=== PATIENT | female | born 1960 | race Caucasian/White ===

== ENCOUNTER 2017-07-09 22:35 | Emergency (ER) | payer BC ==
[2017-07-10] MEDS ORDERED: Labetalol IV* 5 MG/ML 20 ML VIAL IV PUSH ONE (00:22)
[2017-07-10 00:45] LABS: Hematocrit 41 % (35-47); Hemoglobin 13.7 g/dl (12.0-16.0); Mean Corpuscular HGB Conc 34 g/dl (31-36); Mean Corpuscular Hemoglobin 31 pg (27-31); Mean Corpuscular Volume 91 fL (80-97); Mean Platelet Volume 9 um3 (7.4-10.4); Red Blood Count 4.46 10^6/ul (4.0-5.4); Red Cell Distribution Width 14 % (10.5-15)
[2017-07-10 00:59] LABS: Albumin 4.5 g/dL (3.2-5.2); BUN/Creatinine Ratio 17.1 (8-20); Calcium 9.3 mg/dL (8.6-10.3); EGFR African American 110.5 (>60); EGFR Non-African American 85.9 (>60); Globulin 3.4 g/dL (2-4); Potassium 3.8 mmol/L (3.5-5.0); Total Bilirubin 0.4 mg/dL (0.2-1.0); Total Protein 7.9 g/dL (6.4-8.9)
[2017-07-10 01:40] VITALS: BP 147/71
--- NOTE | 2017-07-19 02:10 | ED ---
Isabella Avila Thomas, scribed for Eva Saini MD on 07/10/17 at 0052 . Upper Extremity Pain - HPI Summary HPI Summary: The pt is a 57 y/o F c/o intermittent tingling in her left hand after two blood vessels burst on my left hand earlier today, one on my palm and one on my pinky. The tingling is located from her fingers to group home up her left forearm. Pt denies neck pain, facial droop, slurred speech, dizziness, or CP. In the room, the patients blood pressure is 175/85. She is on ASA 81 mg and atenolol 6.25 mg PO daily. PMHx includes DM Type II and HTN. - History of Current Complaint Chief Complaint: EDExtremityUpper Stated Complaint: TINGLING IN FINGERS Time Seen by Provider: 07/10/17 00:10 Hx Obtained From: Patient Onset/Duration: Started Hours Ago - earlier today, Still Present Timing: Constant Pain Location: Hand - left Aggravating Factor(s): Other - Palpation Alleviating Factor(s): Nothing Associated Signs & Symptoms: Positive: Other - tingling in left hand, pain in left hand; NEGATIVE: neck pain, facial droop, slurred speech, dizziness, CP - Allergies/Home Medications Allergies/Adverse Reactions: Allergies Allergy/AdvReac Type Severity Reaction Status Date / Time Meperidine [From Demerol HCl] Allergy Severe PHLEBITIS Verified 07/09/17 22:41 @ IV SITE Cyclobenzaprine Allergy Intermediate UNABLE TO Verified 07/09/17 22:41 [From Flexeril] BE WAKENED AFTER TAKING Morphine Allergy Intermediate Hives Verified 07/09/17 22:41 Sulfa Drugs Allergy Intermediate Hives Verified 07/09/17 22:41 Oxycodone [From Percocet] Allergy OVERPOWERING, Verified 07/09/17 22:41 COULD NOT STAND, DISORIENTED, WOOZEY PMH/Surg Hx/FS Hx/Imm Hx Previously Healthy: No Endocrine/Hematology History: Reports: Hx Diabetes - TYPE 2 Cardiovascular History: Reports: Hx Hypertension - CONTROL WITH MED Denies: Hx Pacemaker/ICD Respiratory History: Denies: Hx Asthma GI History: Reports: Hx Gastroesophageal Reflux Disease - HX OF, NOTHING NOW History: Reports: Hx Kidney Stones - HX OF RIGHT SIDE, PRESENTLY ON THE LEFT Sensory History: Denies: Hx Hearing Aid Psychiatric History: Reports: Hx Panic Disorder - Cancer History Hx Chemotherapy: No Hx Radiation Therapy: No - Surgical History Surgery Procedure, Year, and Place: [id number] C SECTION X4, [facility] [place]. 2010 LAPAROSCOPIC REMOVAL OF LEFT ADNEXAL MASS AND LEFT OVARY, [facility] [place]. 2012 COLONOSCOPY , [facility] [place] Hx Anesthesia Reactions: Yes - AFTER EPIDURAL WITH CSECTION - FELT NUMB UP TO NECK - Immunization History Date of Tetanus Vaccine: Unknown Infectious Disease History: No Infectious Disease History: Denies: Traveled Outside the [place] in Last 30 Days - Family History Known Family History: Positive: Other - Patient denies relevant FHx - Social History Alcohol Use: Rare Substance Use Type: Reports: None Smoking Status (MU): Never Smoked Tobacco Review of Systems Negative: Chest Pain Positive: Other - Pain in left hand; NEGATIVE: neck pain Neurological: Other - Tingling in left hand; NEGATIVE: facial droop, dizziness Negative: Slurred Speech All Other Systems Reviewed And Are Negative: Yes Physical Exam - Summary Physical Exam Summary: VITAL SIGNS: Reviewed. GENERAL: Patient is a well-developed and nourished female who is lying comfortable in the stretcher. Patient is not in any acute respiratory distress. HEAD AND FACE: No signs of trauma. No ecchymosis, hematomas or skull depressions. No sinus tenderness. EYES: PERRLA, EOMI x 2, No injected conjunctiva, no nystagmus. EARS: Hearing grossly intact. Ear canals and tympanic membranes are within normal limits. MOUTH: Oropharynx within normal limits. NECK: Supple, trachea is midline, no adenopathy, no JVD, no carotid bruit, no c- spine tenderness, neck with full ROM. CHEST: Symmetric, no tenderness at palpation LUNGS: Clear to auscultation bilaterally. No wheezing or crackles. CVS: Regular rate and rhythm, S1 and S2 present, no murmurs or gallops appreciated. ABDOMEN: Soft, non-tender. No signs of distention. No rebound no guarding, and no masses palpated. Bowel sounds are normal. EXTREMITIES: FROM in all major joints, no edema, no cyanosis or clubbing. NEURO: Alert and oriented x 3. No acute neurological deficits. Speech is normal and follows commands. The patient's hand neurovascular is intact with full sensation. SKIN: Dry and warm. There is a small echymotic area over the left 5th finger and palm of the left hand. Triage Information Reviewed: Yes Vital Signs On Initial Exam: Initial Vitals Temp Pulse Resp BP Pulse Ox 97.0 F 106 16 187/89 98 07/09/17 22:36 07/09/17 22:36 07/09/17 22:36 07/09/17 22:36 07/09/17 22:36 Vital Signs Reviewed: Yes - Jose Coma Scale Coma Scale Total: 15 Diagnostics - Vital Signs Vital Signs Temp Pulse Resp BP Pulse Ox 07/10/17 00:16 96 15 175/85 97 07/10/17 00:11 93 18 97 07/09/17 22:36 97.0 F 106 16 187/89 98 - Laboratory Result Diagrams: 07/10/17 00:35 07/10/17 00:35 Lab Statement: Any lab studies that have been ordered have been reviewed, and results considered in the medical decision making process. Re-Evaluation - Re-Evaluation First Eval Re-Evaluation Time: 01:12 Change: Improved Comment: She feels better and is asymptomatic. Course/Dx - Course Assessment/Plan: The pt is a 57 y/o F c/o intermittent tingling in her left hand after two blood vessels burst on my left hand earlier today, one on my palm and one on my pinky. The tingling is located from her fingers to group home up her left forearm. Pt denies neck pain, facial droop, slurred speech, dizziness, or CP. In the room, the patients blood pressure is 175/85. She is on ASA 81 mg and atenolol 6.25 mg PO daily. PMHx includes DM Type II and HTN. In the ED course the patient was given Labetolol. At re-evaluation, she is feeling better and is asymptomatic. Bloodwork was obtained. The patient is diagnosed with finger ecchymosis. The patient is instructed to follow up with primary care. Patient is agreeable with this plan. - Diagnoses Provider Diagnoses: Finger ecchymosis Discharge - Discharge Plan Condition: Stable Disposition: HOME Patient Education Materials: Ecchymosis (ED) Referrals: Cornel Garzon MD [Primary Care Provider] - 3 Days Additional Instructions: Follow up with your primary care physician in three days. Return to the emergency department for any new or worsening symptoms. The documentation as recorded by the Isabella melendez Thomas accurately reflects the service I personally performed and the decisions made by me, Eva Saini MD.
== END 2017-07-10 01:44 | disposition home or self-care (01) ==
LOC: ED 22:35
DX: R58 Hemorrhage, not elsewhere classified (principal); E11.8 Type 2 diabetes mellitus with unspecified complications; Z79.82 Long term (current) use of aspirin; I10 Essential (primary) hypertension; Z88.2 Allergy status to sulfonamides; Z88.5 Allergy status to narcotic agent; Z87.442 Personal history of urinary calculi
CPT/HCPCS: 36415; 80053; 85025; 85610; 85730; 96374; 99283

== ENCOUNTER 2018-11-27 15:04 | Emergency (ER) | payer BC ==
--- NOTE | 2018-11-27 15:17 | UC ---
Lower Extremity/Ankle HPI - HPI Summary HPI Summary: 58 yo female presents with RIGHT ankle/heel pain for the last few hours. She tells me that she was sitting eating with her family for Easter with her right ankle on and under her left knee. When she went to walk, she had pain in her inside right ankle and noticed some redness and bruising. She applied ice and elevated her foot and her symptoms improved, but still had some mild pain prompting her visit to . She says that she has diabetes and does have some peripheral neuropathy in her feet at baseline. She has not taken anything OTC for her symptoms. - History of Current Complaint Stated Complaint: R ANKLE PAIN Time Seen by Provider: 11/27/18 15:13 Hx Obtained From: Patient Onset/Duration: Sudden Onset Severity Initially: Moderate Severity Currently: Moderate Pain Intensity: 6 Pain Scale Used: 0-10 Numeric Aggravating Factor(s): Standing, Ambulation Alleviating Factor(s): Rest, Elevation, Ice Able to Bear Weight: Yes - Allergies/Home Medications Allergies/Adverse Reactions: Allergies Allergy/AdvReac Type Severity Reaction Status Date / Time cyclobenzaprine Allergy Severe unable to Verified 11/27/18 15:34 wake meperidine Allergy Severe phlebitis Verified 11/27/18 15:34 at IV site oxycodone Allergy Severe inability Verified 11/27/18 15:34 to stand morphine Allergy Intermediate Hives Verified 11/27/18 15:34 Sulfa (Sulfonamide Allergy Intermediate Hives Verified 11/27/18 15:34 Antibiotics) PMH/Surg Hx/FS Hx/Imm Hx Endocrine History: Diabetes Cardiovascular History: Hypertension - Surgical History Surgical History: Yes Surgery Procedure, Year, and Place: [id number] [place] [facility] [place]COPIC [place] [facility] [place] [facility] [place] - Family History Known Family History: Positive: Diabetes - Social History Occupation: Employed Full-time Lives: With Family Alcohol Use: Rare Substance Use Type: None Smoking Status (MU): Never Smoked Tobacco Review of Systems All Other Systems Reviewed And Are Negative: Yes Constitutional: Positive: Negative Skin: Positive: Negative Respiratory: Positive: Negative Cardiovascular: Positive: Negative Neurovascular: Positive: Negative Musculoskeletal: Positive: Other: - Right ankle pain Neurological: Positive: Negative Psychological: Positive: Negative Physical Exam - Summary Physical Exam Summary: GENERAL: NAD. WDWN. No pain distress. SKIN: No rashes, sores, lesions, or open wounds. CHEST: No accessory muscle use. Breathing comfortably and in no distress. CV: Pulses intact PT and DP. Cap refill <2seconds MSK: RIGHT ankle: Mild TTP overlying tibial nerve and flexor retinaculum. FROM. No ecchymosis. Strength 5/5. No edema or obvious bony deformities. Negative talar tilt. NEURO: Alert. Sensations intact and symmetric B/L LEs PSYCH: Age appropriate behavior. Triage Information Reviewed: Yes Vital Signs: Vital Signs: Temp Pulse Resp BP Pulse Ox 98.8 F 90 16 149/81 96 11/27/18 15:20 11/27/18 15:20 11/27/18 15:20 11/27/18 15:20 11/27/18 15:20 Vital Signs Reviewed: Yes Lower Extremity Course/Dx - Course Course Of Treatment: XR: IMPRESSION: No fracture of the right ankle is noted. Suspect soft tissue injury or tibial nerve compression injury. Pt was given a post op shoe to use for comfort. Advised to rest, ice, and elevate her foot. I suspect her symptoms will be much improved in a few days with appropriate rest. - Differential Dx/Diagnosis Provider Diagnosis: Foot pain Discharge - Sign-Out/Discharge Documenting (check all that apply): Patient Departure All imaging exams completed and their final reports reviewed: Yes - Discharge Plan Condition: Stable Disposition: HOME Patient Education Materials: Peripheral Neuropathy (ED) Referrals: Cornel Garzon MD [Primary Care Provider] - Additional Instructions: If you develop a fever, shortness of breath, chest pain, new or worsening symptoms - please call your PCP or go to the ED. Your blood pressure was high at todays visit. Please see your primary provider within 4 weeks for recheck and re-evaluation. 1) Rest and elevate your foot as much as possible 2) Use the post op shoe as needed for comfort 3) I suspect your foot will feel better in a few days with appropriate rest - Billing Disposition and Condition Condition: STABLE Disposition: Home
[2018-11-27 15:27] VITALS: BP 149/81
== END 2018-11-27 15:56 | disposition home or self-care (01) ==
LOC: UCEAST 15:04
DX: M25.571 Pain in right ankle and joints of right foot (principal); E11.42 Type 2 diabetes mellitus with diabetic polyneuropathy; I10 Essential (primary) hypertension; Z88.5 Allergy status to narcotic agent; Z88.2 Allergy status to sulfonamides; Z88.8 Allergy status to other drugs, medicaments and biological substances
CPT/HCPCS: 99212; G0463